=== PATIENT | male | born 1955 | race Caucasian/White ===

== ENCOUNTER 2024-06-13 15:18 | Inpatient (IN) | payer OTHER ==
[~2024-06-13] VITALS: Ht 185.4 cm; Wt 137.6 kg
[2024-06-13] MEDS ORDERED: METO25 PO (16:16)
[2024-06-13] MEDS ORDERED: BUME1TAB50 PO ×2 (16:16→18:21)
[2024-06-13] MEDS ORDERED: ATOR40TA28 PO (16:16)
[2024-06-13] MEDS ORDERED: TICA90TA PO (16:16)
[2024-06-13] MEDS ORDERED: SACU1TAB PO (16:16)
[2024-06-13 16:30] LABS: BASOPHILS % (AUTO) 1.2 % (0.0-2.0); EOSINOPHILS % (AUTO) 1.5 % (1.0-6.0); HEMATOCRIT 37.1 % (41-53); HEMOGLOBIN 10.9 g/dL (13.5-17.5); LYMPHOCYTES # (AUTO) 1.3 K/uL (1.0-4.8); LYMPHOCYTES % (AUTO) 16.7 % (22.0-44.0); MEAN CORPUSCULAR HEMOGLOBIN 19.1 pg (26.0-34.0); MEAN CORPUSCULAR HGB CONC 29.3 G/dL (31.0-37.0); MEAN CORPUSCULAR VOLUME 65 fL (80-100); NEUTROPHILS # (AUTO) 5.3 K/uL (1.8-7.7); NEUTROPHILS % (AUTO) 67.6 % (40.0-70.0); PLATELET COUNT (AUTO) 302 K/uL (150-450); RED BLOOD CELL COUNT(AUTO) 5.71 MIL/uL (4.50-5.90); RED CELL DISTRIBUTION WIDTH 26.7 % (11.5-14.5); WHITE BLOOD COUNT (AUTO) 7.8 K/uL (4.5-11.0)
[2024-06-13 16:40] LABS: CALCIUM, TOTAL 8.6 mg/dL (8.8-10.5); CREATININE 1.21 mg/dL (0.60-1.30); POTASSIUM 4.7 mmol/L (3.5-5.1)
[2024-06-13 16:49] LABS: RBC MORPHOLOGY COMMENT ABNORMAL RBC MORPH; TROPONIN I-HIGH SENSITIVITY 9 ng/L (<76)
[2024-06-13] MEDS ORDERED: DOCU100C33 PO (18:21)
[2024-06-13] MEDS ORDERED: FERR-72 PO (18:21)
[2024-06-13] MEDS ORDERED: POTA10CA95 PO (18:21)
[2024-06-13] MEDS ORDERED: ASPI-1451 PO (18:21)
[2024-06-13] MEDS ORDERED: GABA-1554 PO (18:21)
[2024-06-13] MEDS ORDERED: SENN8.6T20 PO (18:21)
[2024-06-13] MEDS ORDERED: OMEP20 PO (18:21)
[2024-06-13] MEDS ORDERED: LIDO1ADH48 TP (18:21)
[2024-06-13] MEDS ORDERED: DULA0.75 SQ (18:21)
[2024-06-13] MEDS ORDERED: MULT-1203 PO (18:21)
[2024-06-13] MEDS ORDERED: MELA1TAB73 PO (18:21)
[2024-06-13] MEDS ORDERED: NITR0.4T50 SL (18:21)
[2024-06-13] MEDS ORDERED: RANO500T6 PO (18:21)
[2024-06-13] MEDS ORDERED: SPIR-37 PO (18:21)
[2024-06-13] MEDS ORDERED: DAPA10TA7 PO (18:21)
[2024-06-13] MEDS ORDERED: ACET-66 PO (18:21)
[2024-06-13] MEDS ORDERED: APIX5TAB PO (18:21)
[2024-06-13] MEDS ORDERED: ALPH200C PO (18:21)
[2024-06-13] MEDS ORDERED: BISACODYL 10 MG RECTAL RECTAL SUPPOSITORY PR PRN (19:30)
[2024-06-13] MEDS ORDERED: ONDANSETRON HCL 4 MG/2 ML VIAL IVP PRN (19:30)
[2024-06-13] MEDS ORDERED: MAGNESIUM HYDROXIDE SUSPENSION 30 ML UDCUP PO PRN (19:30)
[2024-06-13] MEDS: NITROGLYCERIN 0.4 MG SUBLINGUAL TABLET #25 SL SCH (19:30)
[2024-06-13] MEDS ORDERED: IPRATROPIUM BROMIDE 0.5 MG/2.5 ML NEB SOLUTION NEB PRN (19:30)
[2024-06-13] MEDS ORDERED: ALBUTEROL SULFATE 2.5 MG/0.5 ML NEB SOLUTION NEB PRN (19:30)
[2024-06-13] MEDS ORDERED: SENNOSIDES 8.6 MG TABLET PO PRN (19:30)
[2024-06-13] MEDS ORDERED: ZOLPIDEM TARTRATE 5 MG TABLET PO PRN (19:30)
[2024-06-13 20:55] VITALS: BP 100/56; PULSE 62; RESP 18; TEMP 98.4; O2SAT 100
[2024-06-13] MEDS: SACUBITRIL/VALSARTAN 24-26 MG TABLET PO SCH (21:00)
[2024-06-13] MEDS ORDERED: OMEPRAZOLE 20 MG CAPSULE PO SCH (21:00)
[2024-06-13] MEDS: METOPROLOL TARTRATE 25 MG TABLET PO SCH (21:00)
[2024-06-13] MEDS: ACETAMINOPHEN 500 MG TABLET PO SCH (21:35)
[2024-06-13] MEDS: GABAPENTIN 400 MG CAPSULE PO SCH (21:36)
[2024-06-13] MEDS: ATORVASTATIN CALCIUM 40 MG TABLET PO SCH (21:36)
[2024-06-13] MEDS: APIXABAN 5 MG TABLET PO SCH (21:36)
[2024-06-14] MEDS: TICAGRELOR 90 MG TABLET PO SCH (00:05)
[2024-06-14] MEDS: RANOLAZINE 500 MG ER TABLET PO SCH (00:05)
[2024-06-14 01:51] VITALS: BP 103/55; PULSE 57; RESP 18; TEMP 98; O2SAT 97
[2024-06-14 05:01] VITALS: BP 92/48; PULSE 60; RESP 18; TEMP 97.8; O2SAT 100
[2024-06-14 08:04] VITALS: BP 102/66; PULSE 65; RESP 18; TEMP 98.1; O2SAT 98
[2024-06-14] MEDS: SPIRONOLACTONE 25 MG TABLET PO SCH (08:33)
[2024-06-14] MEDS: POTASSIUM CHLORIDE 10 MEQ ER TABLET PO SCH (08:34)
[2024-06-14] MEDS: DAPAGLIFLOZIN PROPANEDIOL 5 MG TABLET PO SCH (08:34)
[2024-06-14] MEDS: MULTIVITAMINS, THERAPEUTIC TABLET PO SCH (08:35)
[2024-06-14] MEDS: PANTOPRAZOLE SODIUM 40 MG DR TABLET PO SCH (08:35)
[2024-06-14] MEDS: ASPIRIN 81 MG CHEWABLE TABLET PO SCH (08:40)
[2024-06-14] MEDS ORDERED: [UNRECOGNIZED DRUG - OTHER] PO SCH (09:00)
[2024-06-14] MEDS ORDERED: [UNRECOGNIZED DRUG - OTHER] TP SCH (09:00)
[2024-06-14 10:15] LABS: BASOPHILS % (AUTO) 1.4 % (0.0-2.0); EOSINOPHILS % (AUTO) 3.1 % (1.0-6.0); HEMATOCRIT 36.8 % (41-53); HEMOGLOBIN 10.7 g/dL (13.5-17.5); LYMPHOCYTES # (AUTO) 1.4 K/uL (1.0-4.8); LYMPHOCYTES % (AUTO) 21.7 % (22.0-44.0); MEAN CORPUSCULAR HEMOGLOBIN 19.1 pg (26.0-34.0); MEAN CORPUSCULAR HGB CONC 29.1 G/dL (31.0-37.0); MEAN CORPUSCULAR VOLUME 66 fL (80-100); MONOCYTES # (AUTO) 0.9 K/uL (0.1-1.0); MONOCYTES % (AUTO) 14.4 % (2.0-9.0); NEUTROPHILS # (AUTO) 3.9 K/uL (1.8-7.7); NEUTROPHILS % (AUTO) 59.4 % (40.0-70.0); PLATELET COUNT (AUTO) 286 K/uL (150-450); RED CELL DISTRIBUTION WIDTH 26.3 % (11.5-14.5); WHITE BLOOD COUNT (AUTO) 6.6 K/uL (4.5-11.0)
[2024-06-14 10:40] LABS: CALCIUM, TOTAL 9.2 mg/dL (8.8-10.5); CREATININE 1.25 mg/dL (0.60-1.30); POTASSIUM 4.8 mmol/L (3.5-5.1)
[2024-06-14 10:56] LABS: RBC MORPHOLOGY COMMENT ABNORMAL RBC MORPH
[2024-06-14 11:38] VITALS: BP 96/57; PULSE 51; RESP 16; TEMP 98.6; O2SAT 97
[2024-06-14 16:23] VITALS: BP 104/71; PULSE 63; RESP 20; TEMP 98.4; O2SAT 100
[2024-06-14 20:00] VITALS: BP 98/53; PULSE 65; RESP 19; TEMP 97.6; O2SAT 96
[2024-06-14] MEDS: MELATONIN 5 MG TABLET PO PRN (20:29)
[2024-06-15] VITALS: BP 105/62; PULSE 65; RESP 19; TEMP 98; O2SAT 96
[2024-06-15 04:00] VITALS: BP 112/53; PULSE 61; RESP 19; TEMP 98.2; O2SAT 96
[2024-06-15 09:55] VITALS: BP 105/67; PULSE 68; RESP 18; TEMP 97.5; O2SAT 99
[2024-06-15] MEDS: FUROSEMIDE 20 MG TABLET PO SCH (09:58)
[2024-06-15 13:15] VITALS: BP 96/57; PULSE 68; RESP 18; TEMP 98.4; O2SAT 99
[2024-06-15 16:35] VITALS: BP 102/64; PULSE 66; RESP 18; TEMP 98; O2SAT 98
[2024-06-15 20:00] VITALS: BP 107/70; PULSE 63; RESP 18; TEMP 98.4; O2SAT 98
[2024-06-16] VITALS: PULSE 61; TEMP 98
[2024-06-16 09:55] VITALS: BP 103/64; PULSE 65; RESP 18; TEMP 98.2; O2SAT 100
[2024-06-16 12:37] VITALS: BP 95/65; PULSE 65; RESP 18; TEMP 98.1; O2SAT 95
[2024-06-16 17:57] VITALS: BP 101/72; PULSE 66; RESP 17; TEMP 97.8; O2SAT 100
[2024-06-16 21:09] VITALS: BP 97/65; PULSE 69; RESP 18; O2SAT 99
[2024-06-17 08:20] VITALS: BP 135/62; PULSE 66; RESP 19; TEMP 97.6; O2SAT 100
[2024-06-17 11:30] VITALS: BP 101/63; PULSE 61; RESP 19; TEMP 98.1; O2SAT 98
[2024-06-17 16:09] VITALS: BP 98/55; PULSE 65; RESP 20; TEMP 98.3; O2SAT 100
[2024-06-17 22:13] VITALS: BP 121/56; PULSE 56; RESP 20; TEMP 98; O2SAT 96
[2024-06-18 01:30] VITALS: BP 98/66; PULSE 61; RESP 18; TEMP 98; O2SAT 99
[2024-06-18 03:44] VITALS: BP 94/66; PULSE 65; RESP 20; TEMP 97.9; O2SAT 99
[2024-06-18 08:50] VITALS: BP 107/77; PULSE 72; RESP 18; TEMP 97.8; O2SAT 98
[2024-06-18 20:32] VITALS: BP 118/77; PULSE 61; RESP 20; TEMP 98.3; O2SAT 95
[2024-06-19 04:36] VITALS: BP 107/75; PULSE 65; RESP 20; TEMP 97.9; O2SAT 99
[2024-06-19 08:00] VITALS: BP 123/84; PULSE 65; RESP 18; TEMP 98.1; O2SAT 98
[2024-06-19 12:00] VITALS: BP 119/72; PULSE 64; RESP 18; TEMP 98.4; O2SAT 98
[2024-06-19 16:00] VITALS: BP 122/79; PULSE 63; RESP 18; TEMP 98.2; O2SAT 98
[2024-06-20] VITALS (7 sets, daily range): BP systolic 95–110; BP diastolic 49–68; PULSE 65–77; RESP 18–20; TEMP 98–98.6; O2SAT 98–100
[2024-06-20] MEDS ORDERED: [UNRECOGNIZED DRUG - OTHER] SQ SCH (09:00)
[2024-06-21 05:27] VITALS: BP 105/67; PULSE 61; RESP 18; TEMP 97.6; O2SAT 100
[2024-06-21 08:00] VITALS: BP 103/68; PULSE 69; RESP 18; TEMP 98; O2SAT 99
[2024-06-21 11:51] LABS: GLUCOMETER DEV NAME(LOC) 5S.1C; GLUCOSE,POINT OF CARE 94 MG/DL (70-110)
[2024-06-21 12:00] VITALS: BP 99/62; PULSE 64; RESP 18; TEMP 97.8; O2SAT 98
[2024-06-21 16:16] VITALS: BP 100/63; PULSE 61; RESP 18; TEMP 98.3; O2SAT 98
[2024-06-21 20:00] VITALS: BP 125/83; PULSE 78; RESP 18; TEMP 98.5; O2SAT 99
[2024-06-22 04:46] VITALS: BP 94/65; PULSE 62; RESP 18; TEMP 97.8; O2SAT 99
[2024-06-22 06:01] LABS: GLUCOMETER DEV NAME(LOC) 5S.1C; GLUCOSE,POINT OF CARE 108 MG/DL (70-110)
[2024-06-22 08:00] VITALS: BP 117/76; PULSE 63; RESP 17; TEMP 98.3; O2SAT 100
[2024-06-22 12:00] VITALS: BP 119/71; PULSE 60; RESP 17; TEMP 97.8; O2SAT 100
[2024-06-22 16:00] VITALS: BP 118/78; PULSE 67; RESP 17; TEMP 98.1; O2SAT 100
[2024-06-22] MEDS ORDERED: PANT-31 PO (17:19)
[2024-06-22 17:36] LABS: GLUCOMETER DEV NAME(LOC) 5S.1C; GLUCOSE,POINT OF CARE 167 MG/DL (70-110)
[2024-06-22 18:11] LABS: GLUCOMETER DEV NAME(LOC) 5N.2C; GLUCOSE,POINT OF CARE 104 MG/DL (70-110)
[2024-06-22 20:16] VITALS: BP 108/66; PULSE 73; RESP 18; TEMP 98.4; O2SAT 98
[2024-06-23 00:11] LABS: GLUCOMETER DEV NAME(LOC) 5N.2C; GLUCOSE,POINT OF CARE 102 MG/DL (70-110)
== END 2024-06-23 00:25 | DRG 291 ==
LOC: EMS 15:18 → EDH 19:41 → 5N 21:04
PROVIDERS: ADMIT Hospitalist; ATTEND Hospitalist
DX: I11.0 Hypertensive heart disease with heart failure (principal); I50.23 Acute on chronic systolic (congestive) heart failure; J96.11 Chronic respiratory failure with hypoxia; Z68.41 Body mass index [BMI] 40.0-44.9, adult; I25.10 Atherosclerotic heart disease of native coronary artery without angina pectoris; E11.9 Type 2 diabetes mellitus without complications; E78.5 Hyperlipidemia, unspecified; E66.01 Morbid (severe) obesity due to excess calories; G47.33 Obstructive sleep apnea (adult) (pediatric); J44.9 Chronic obstructive pulmonary disease, unspecified; I48.91 Unspecified atrial fibrillation; Z79.899 Other long term (current) drug therapy; Z79.01 Long term (current) use of anticoagulants
CPT/HCPCS: 71045; 80048; 82962; 83880; 84484; 85025; 93005; 93306; 99285; 36415-L1; 36415-TC